=== PATIENT | male | born 1985 | race Caucasian/White ===

== ENCOUNTER 2017-04-19 21:18 | Emergency (ER) ==
[2017-04-19 21:32] VITALS: BP 144/101; TEMP 98.3; BMI 28.7
[2017-04-19] MEDS ORDERED: DECADRON 4 MG/ML SDV IM STA (22:03)
--- NOTE | 2017-04-19 22:06 | ED.PDOC ---
General ED Provider: Dr. ANGEL LUNA Chief Complaint: Earache Stated Complaint: Pt compalints of left ear ache, sore throat, nasal Drainage and swelling of tongue for afew days. states has difficulty swollowing. Time Seen by Physician: 22:04 Mode of Arrival: Walk-In Information Source: Patient Exam Limitations: No limitations Primary Care Provider: MEAGAN SOTO Nursing and Triage Documentation Reviewed and Agree: Yes Reviewed sepsis parameters & appropriate labs ordered?: Yes System Inflammatory Response Syndrome: Not Applicable Sepsis Protocol: For patient's 13 years and over: Temp is 96.8 and below OR 101 and greater Pulse >90 BPM Resp >20/minute Acutely Altered Mental Status Are patient's symptoms suggestive of a new infection, such as: -Pneumonia -Skin, Soft Tissue -Endocarditis -UTI -Bone, Joint Infection -Implantable Device -Acute Abdominal Infection -Wound Infection -Meningitis -Blood Stream Catheter Infection -Unknown System Inflammatory Response Syndrome: Not Applicable EENT Complaint Exam - Dental/Oral Complaint/Exam Mechanism of Injury: No known trauma Onset/Duration: 1 day Symptoms Are: Still present Timing: Constant Initial Severity: Moderate Current Severity: Moderate Location: Tongue swelling Character: Reports: Aching Associated Signs and Symptoms: Reports: Swelling. Denies: Discharge, Fever, Foul odor, Foul taste in mouth Related History: Reports: Similar episode Cardiac Risk Factors: Reports: None Dental/Oral Surgical History: Reports: None Tooth Findings: Present: Normal findings Cervical Lymphadenopathy Present: No Facial Swelling Present: No Bleeding Present: No Oropharynx Findings: Absent: Clots, Active bleeding Septal Hematoma: No Foreign Body Present: No Dysphagia Present: No Drooling Present: No Asymmetrical Tonsillar Swelling Present: No Uvula Midline: Yes Che-tonsillar Fluctuence: No Trismus Present: No Palatal Petechiae Present: No Scarlatinaform Rash Present: No Lesions: Present: Tongue (White patch lateral to the tongue) Exanthem: Absent: Lip, Gums, Buccal Mucosa, Pharynx Vesicles: Absent: Lip, Gums, Tongue, Buccal Mucosa, Pharynx Differential Diagnoses: Thrush, Other (angioedema ) Review of Systems - Review Of Systems Constitutional: Reports: No symptoms Eyes: Reports: No symptoms Ears, Nose, Mouth, Throat: Reports: Ear pain, Ear discharge, Throat pain, Throat swelling Respiratory: Reports: No symptoms Cardiac: Reports: No symptoms GI: Reports: No symptoms : Reports: No symptoms Musculoskeletal: Reports: No symptoms Skin: Reports: No symptoms Neurological: Reports: No symptoms Endocrine: Reports: No symptoms Hematologic/Lymphatic: Reports: No symptoms All Other Systems: Reviewed and Negative Past Medical History - Past Medical History Previously Healthy: Yes Endocrine: Reports: None Cardiovascular: Reports: Hypertension Respiratory: Reports: None Hematological: Reports: None Gastrointestinal: Reports: GERD Genitourinary: Reports: None Neuro/Psych: Reports: None Musculoskeletal: Reports: None Cancer: Reports: None - Surgical History General Surgical History: Reports: None - Family History Family History: Reports: None - Social History Smoking Status: Current some day smoker, Light tobacco smoker Hx Substance Use: Yes (MARIJUANA) Alcohol Screening: Occasionally - Immunizations Tetanus Shot up to Date: Yes (2013) Physical Exam - Physical Exam Appearance: Ill-appearing, Well-nourished Ill-appearing: Mild Pain Distress: Mild Eyes: VIJAY, EOMI, Conjunctiva clear ENT: Ears normal, Nose normal, Erythema Neck: Supple Respiratory: Airway patent, Breath sounds clear, Breath sounds equal, Respirations nonlabored Cardiovascular: RRR, Pulses normal, No rub, No murmur GI/: Soft, Nontender, No masses, Bowel sounds normal, No Organomegaly Musculoskeletal: Normal strength, ROM intact, No edema, No calf tenderness Skin: Warm, Dry, Normal color Neurological: Sensation intact, Motor intact, Reflexes intact, Alert, Oriented Psychiatric: Anxious Critical Care Note - Critical Care Note Total Time (mins): 0 Course - Course Orders, Labs, Meds: Orders Category Date Time Status RAPID STREP SCREEN [MOLECULAR GROUP A STREP] Stat LAB 04/19/17 22:02 Uncollected Dexamethasone 4 mg/ml Inj [Decadron 4 mg/ml Sdv] MEDS 04/19/17 22:03 Stat 8 mg IM ONCE STA Medications Generic Name Dose Route Start Last Admin Trade Name Freq PRN Reason Stop Dose Admin Dexamethasone Sodium Phosphate 8 mg 04/19/17 22:03 Decadron 4 Mg/Ml Sdv IM 04/19/17 22:04 ONCE STA Vital Signs: Temp Pulse Resp BP Pulse Ox 04/19/17 21:19 98.3 F 99 H 24 144/101 H 98 Departure - Departure Time of Disposition: 22:54 Disposition: HOME SELF-CARE Discharge Problem: Mild tongue swelling Allergic rhinitis Qualifiers: Allergic rhinitis trigger: unspecified Allergic rhinitis seasonality: seasonal Qualified Code(s): J30.2 - Other seasonal allergic rhinitis Instructions: Allergic Rhinitis (ED), Angioedema (ED) Condition: Stable Pt referred to PMD for follow-up: Yes IPMP verified?: No Additional Instructions: Use over the counter ocean spray to you nose 4 times a day Follow up with PCP in 3 days Take medications as prescribed. Prescriptions: Methylprednisolone [Medrol Dosepak] 4 mg PO DIRECTED #1 pkg Allergies/Adverse Reactions: Allergies acetaminophen [From Tylenol] Adverse Reaction (Verified 04/19/17 21:57) Itching codeine Adverse Reaction (Verified 04/19/17 21:57) Itching PT STATES IS NOT ALLERGIC TO THIS MED, IS JUST HIGHLY SENSITIVE CAUSING ITCHING tramadol [From Ultram] Adverse Reaction (Verified 04/19/17 21:57) Itching PT STATES IS NOT ALLERGIC TO THIS MED, IS JUST HIGHLY SENSITIVE CAUSING ITCHING Home Medications: Ambulatory Orders Aspirin 325 mg PO DIRECTED PRN 04/19/17 Clonazepam [Klonopin] 1 mg PO BID 04/19/17 Hydrocodone Bit/Acetaminophen [Cheraw 10-325] 1 tab PO TID PRN 04/19/17 Methylprednisolone [Medrol Dosepak] 4 mg PO DIRECTED #1 pkg 04/19/17 Disposition Discussed With: Patient
[2017-04-19] MEDS ORDERED: MOTRIN SUSP UD PO STA (22:15)
== END 2017-04-19 23:10 | disposition home or self-care (01) ==
LOC: ED 21:18
DX: J30.2 Other seasonal allergic rhinitis (principal); R22.0 Localized swelling, mass and lump, head; I10 Essential (primary) hypertension; F17.210 Nicotine dependence, cigarettes, uncomplicated
CPT/HCPCS: 87651; 96372; 99282

== ENCOUNTER 2017-04-20 13:00 | Outpatient (RCR) ==
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
--- NOTE | 2017-04-18 13:12 | RS.OTCXNS ---
OT Case Note Date of Scheduled Appointment: 04/18/17 Type: Cancel
[2017-04-19 21:32] VITALS: BMI 28.7
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
--- NOTE | 2017-04-26 16:41 | RS.OTCXNS ---
OT Case Note Date of Scheduled Appointment: 04/26/17 Type: No Show
--- NOTE | 2017-04-28 13:33 | RS.OTCXNS ---
OT Case Note Date of Scheduled Appointment: 04/28/17 Type: No Show
== END 2017-05-11 ==
PROVIDERS: ATTEND Family Medicine
DX: M24.50 Contracture, unspecified joint (principal)